=== PATIENT | male | born 1935 | race Caucasian/White ===

== ENCOUNTER 2025-06-16 12:55 | Emergency (ER) | payer OTHER ==
[~2025-06-16] VITALS: Ht 165.1 cm; Wt 70.5 kg
[2025-06-16 14:04] VITALS: TEMP 97.8
[2025-06-16] MEDS ORDERED: INSULIN SQ (14:04)
[2025-06-16] MEDS ORDERED: TAMS0.4C94 PO (14:04)
[2025-06-16] MEDS: LIDOCAINE 1%/EPI 1:200,000/PF 10 ML VIAL ID ONE (16:09)
[2025-06-16] MEDS: BACITRACIN 0.9 GM PACKET OINTMENT TP ONE (16:09)
[2025-06-16 16:30] VITALS: BP 136/87; PULSE 78; RESP 15; O2SAT 99
[2025-06-16] MEDS: PERTUSS(ACELL),DIPH,TET/PF 0.5 ML SYRINGE [ADULT] IM. ONE (17:30)
== END 2025-06-16 18:22 | disposition home or self-care (01) ==
LOC: EMS 12:57
DX: S01.81XA Laceration without foreign body of other part of head, initial encounter (principal); S51.812A Laceration without foreign body of left forearm, initial encounter; E11.9 Type 2 diabetes mellitus without complications; Z87.19 Personal history of other diseases of the digestive system; Z85.038 Personal history of other malignant neoplasm of large intestine; Z79.4 Long term (current) use of insulin; Z79.899 Other long term (current) drug therapy; W01.0XXA Fall on same level from slipping, tripping and stumbling without subsequent striking against object, initial encounter; Y93.89 Activity, other specified; Y92.89 Other specified places as the place of occurrence of the external cause; Y99.8 Other external cause status
CPT/HCPCS: 99285; 70450; 72125; 90715; 90471; 12011; J3490